=== PATIENT | male | born 1945 | race Caucasian/White ===

== ENCOUNTER 2025-05-15 08:46 | Emergency (ER) | payer MEDICARE, OTHER, SELFPAY ==
[2025-05-15 08:58] VITALS: BP 143/89; PULSE 97; RESP 18; TEMP 36.5; O2SAT 96; BMI 34.6
--- NOTE | 2025-05-15 09:06 | ED_ITS ---
HPI - Extremity Problem 2 General: Chief complaint: Extremity Injury, Lower Stated complaint: Lt leg swelling Time Seen by Provider: 05/15/25 08:48 Source: patient Mode of arrival: ambulatory Limitations: no limitations History of Present Illness: 80-year-old male states that over the la st few days he has had swelling posterior aspect of his left knee has been having erythema and some drainage he has pain he rates a 1 out of 10 denies any fevers denies any injuries. Associated symptoms: Deny chest pain, fever(s) or rash Related Data Previous Rx's ?Medication ?Instructions ?Recorded cephalexin 500 mg capsule 500 mg PO TID 7 days #21 cap s 05/15/25 sulfamethoxazole 800 1 tab PO BID 10 days #20 tab s 05/15/25 mg-trimethoprim 160 mg tablet (Bactrim DS) Allergies Allergy/AdvReac Type Severity Reaction Status Date / Time warfarin Allergy ADR-Nausea Verified 05/15/25 08:56 Review of Systems 2 Const: Denies: fever(s), chills, body aches or change in appetite ENMT: Denies: throat pain or dental pain Card: Denies: chest pain Resp: Denies: dyspnea GI: Denies: abdominal pain, nausea, vomiting or diarrhea Musc: Reports: extremity pain; Denies: neck pain or back pain Skin/Breast: Reports: erythema; Denies: rash Neuro: Denies: headache(s) Physical Exam 2 Const: COMMON NORMALS: no acute distress, patient oriented x3 and healthy appearing HENMT: COMMON NORMALS: normocephalic and atraumatic HEAD & SCALP: n ormocephalic and atraumatic Eye: COMMON NORMALS: conjunctivae normal CONJUNCTIVA: Yes conjunctivae normal Neck/C-Spine: COMMON NORMALS: full ROM and supple Chest: COMMONS NORMALS: normal inspection of the chest Resp: COMMON NORMALS: normal respiratory effort Cardio: COMMON NORMALS: regular rate RATE: regular rate Extremity: COMMON NORMALS: full ROM NARRATIVE EXTREMITY EXAM: Erythema cellulitis to posterior left knee Neuro: COMMON NORMALS: patient oriented x3, moves all extremities and no focal motor deficits Psych: COMMON NORMALS: mental status grossly normal, Normal thought process present and cooperative THOUGHT PROCESS: Normal thought process present Skin: COMMON NORMALS: no rashes or lesions noted GENERAL SKIN EXAM: no rashes or lesions noted Course 2 Vital Signs: Vital signs: Vital Signs Temperature 97.7 F 05/15/25 08:58 Pulse Rate 92 05/15/25 09:34 Respiratory Rate 18 05/15/25 08:58 Blood Pressure 143/89 05/15/25 09:34 Pulse Oximetry 94 05/15/25 09:34 MDM - Extremity (Nontraumatic) Medical Decision Making Patient presents here with cellulitis of the left leg no signs of abscess did give IV antibiotics here we will start him on oral antibiotics he is to return if worsening he understands agrees to plan. Medical Records I reviewed the patient's medical records. Lab Data I reviewed the patient's lab results. 05/15/25 09:22 Laboratory Results WBC 9.12 10^3/uL (3.29-11.43) 05/15/25 09:22 RBC 5.01 10^6/uL (3.85-5.65) 05/15/25 09:22 Hgb 14.50 g/dL (11.27-16.99) 05/15/25 09:22 Hct 44.3 % (37-53) 05/15/25 09:22 MCV 88.4 fl (82-101) 05/15/25 09:22 MCH 28.9 pg (27-33) 05/15/25 09:22 MCHC 32.7 g/dL (30-55) 05/15/25 09:22 RDW 14.3 % (12.1-15.1) 05/15/25 09:22 Plt Count 186 10^3/cmm (157-399) 05/15/25 09:22 MPV 9.3 fL (7.4-10.4) 05/15/25 09:22 Neut % (Auto) 55.5 % 05/15/25 09:22 Lymph % (Auto) 25.2 % 05/15/25 09:22 [place] % (Auto) 12.1 % 05/15/25 09:22 Eos % (Auto) 6.8 % 05/15/25 09:22 Baso % (Auto) 0.2 % 05/15/25 09:22 Neut # (Auto) 5.06 10^3/uL (1.8-7.7) 05/15/25 09:22 Lymph # (Auto) 2.3 10^3/uL (0.8-4.8) 05/15/25 09:22 [place] # (Auto) 1.1 10^3/uL (0.2-0.9) H 05/15/25 09:22 Eos # (Auto) 0.6 10^3/uL (0.0-0.8) 05/15/25 09:22 Baso # (Auto) 0.0 10^3/uL (0.0-0.1) 05/15/25 09:22 Nucleated RBC % (auto) 0 % 05/15/25 09:22 Nucleated RBCs # 0.0 /100WBC 05/15/25 09:22 ESR 1 mm/hr (0-10) 05/15/25 09:22 C-Reactive Protein 5.6 mg/L (0.0-4.9) H 05/15/25 09:22 No radiology studies performed this visit Discharge Plan Discharge Patient Disposition: Home Clinical Impression: Cellulitis of left leg Condition: Stable Prescriptions: New sulfamethoxazole-trimethoprim [Bactrim DS] 800-160 mg tablet 1 tab PO BID 10 Days Qty: 20 0RF cephalexin 500 mg capsule 500 mg PO TID 7 Days Qty: 21 0RF Discharge Orders: Discharge ED (Routine); Ordered 05/15/25 Ordered By: Kurt Escamilla Discharge Diet: Advance as tolerated Discharge Activity: Resume usual activity Patient Instructions: Cellulitis (ED) Print Language: Albanian Coding Level of Care Code ED Material Man for Bridgette Irene
[2025-05-15] MEDS: VANCOMYCIN ADD-Vantage 1,000 MG in 0.9% NaCl ADD-Vantage 250 ML 250 MG IV (09:30)
[2025-05-15 09:33] LABS: Basophils % 0.2 %; Eosinophils # 0.6 10^3/uL (0.0-0.8); Eosinophils % 6.8 %; Hematocrit 44.3 % (37-53); Lymphocytes # 2.3 10^3/uL (0.8-4.8); Lymphocytes % 25.2 %; Mean Corpuscular HGB Conc 32.7 g/dL (30-55); Mean Corpuscular Hemoglobin 28.9 pg (27-33); Mean Corpuscular Volume 88.4 fl (82-101); Mean Platelet Volume 9.3 fL (7.4-10.4); Monocytes # 1.1 10^3/uL (0.2-0.9); Monocytes % 12.1 %; Neutrophils # 5.06 10^3/uL (1.8-7.7); Neutrophils % 55.5 %; Nucleated Red Blood Cells % 0 %; Platelet Count 186 10^3/cmm (157-399); Red Blood Count 5.01 10^6/uL (3.85-5.65); Red Cell Distribution Width 14.3 % (12.1-15.1); White Blood Count 9.12 10^3/uL (3.29-11.43)
[2025-05-15 09:34] VITALS: BP 143/89; PULSE 92; O2SAT 94
[2025-05-15 09:34] LABS: Erythrocyte Sedimentation Rate 1 mm/hr (0-10)
[2025-05-15 09:49] LABS: C Reactive Protein 5.6 mg/L (0.0-4.9)
[2025-05-15 10:43] VITALS: BP 126/82; PULSE 90; O2SAT 96
== END 2025-05-15 10:43 | disposition home or self-care (01) ==
PROVIDERS: Emergency Provider Emergency Medicine
DX: L03.116 Cellulitis of left lower limb (principal)
CPT/HCPCS: 36415; 85025; 85651; 86140; 96374; 99284; J3370; J7050

== ENCOUNTER 2025-05-22 13:48 | Emergency (ER) | payer MEDICARE, OTHER, SELFPAY ==
[2025-05-22 13:51] VITALS: BP 107/61; PULSE 114; RESP 18; TEMP 36.9; O2SAT 96; BMI 33.1
[2025-05-22 14:20] LABS: Bilirubin Urine 1+ (Negative); Blood Urine 2+ (Negative); Glucose Urine UA Negative (Normal); Ketones Urine Trace (Negative); Leukocyte Esterase Urine Negative (Negative); Nitrate Urine Negative (Negative); Protein Urine 2+ (Negative); Urine Appearance Cloudy (CLEAR); Urine Color Dark Yellow (Yellow); pH Urine 5.5 (5-7)
[2025-05-22 14:25] LABS: Add Urine Microscopic? YES; Bacteria Urine None Seen /hpf; Hyaline Casts Urine 27.69 /lpf; RBC Urine 51-100 /hpf (0-2); Universal Test for UA Present (0); WBC Urine 0-5 /hpf (0-5)
[2025-05-22 14:26] LABS: Basophils % 0.4 %; Eosinophils % 0.2 %; Hematocrit 44.2 % (37-53); Lymphocytes # 1.2 10^3/uL (0.8-4.8); Mean Corpuscular HGB Conc 33.3 g/dL (30-55); Mean Corpuscular Hemoglobin 29.1 pg (27-33); Mean Corpuscular Volume 87.4 fl (82-101); Mean Platelet Volume 10.3 fL (7.4-10.4); Monocytes # 0.7 10^3/uL (0.2-0.9); Monocytes % 13.7 %; Neutrophils # 3.13 10^3/uL (1.8-7.7); Neutrophils % 62.1 %; Nucleated Red Blood Cells % 0 %; Platelet Count 119 10^3/cmm (157-399); Red Blood Count 5.06 10^6/uL (3.85-5.65); Red Cell Distribution Width 14.1 % (12.1-15.1); White Blood Count 5.04 10^3/uL (3.29-11.43)
--- NOTE | 2025-05-22 14:33 | W.ED.NAVMDI ---
HPI - Nausea/Vomiting/Diarrhea General: Chief complaint: Nausea/Vomiting/Diarrhea Stated complaint: NV / lethargy Time Seen by Provider: 05/22/25 14:30 Source: patient Mode of arrival: ambulatory Limitations: no limitations History of Present Illness: 80-year-old male who was seen here last week for cellulitis to his left leg he has been on antibiotics for that states that the cellulitis is improved but over the last few days has been having nausea vomiting diarrhea. States he is having some weakness that he feels like he has not been able to tolerate any p.o. He denies any fevers denies any pain. Associated nausea: Yes Associated symtoms: Reports fatigue and nausea; Denies chest pain, dysuria or headache(s) Related Data Home Medications ?Medication ?Instructions ?Recorded ?Confirmed atorvastatin 80 mg tablet 80 mg PO QPM 05/22/25 05/22/25 dabigatran etexilate 150 mg 150 mg PO QPM 05/22/25 05/22/25 capsule (Pradaxa) diltiazem HCl 180 mg 180 mg PO QPM 05/22/25 05/22/25 capsule,extended release 24 hr losartan 25 mg tablet 255 mg PO QPM 05/22/25 05/22/25 Previous Rx's ?Medication ?Instructions ?Recorded sulfamethoxazole 800 1 tab PO BID 10 days #20 tabs 05/15/25 mg-trimethoprim 160 mg tablet (Bactrim DS) ondansetron 4 mg disintegrating 4 mg PO Q6H PRN nausea and 05/22/25 tablet vomiting #14 tabs Allergies Allergy/AdvReac Type Severity Reaction Status Date / Time warfarin Allergy ADR-Nausea Verified 05/15/25 08:56 Review of Systems Const: Reports: fatigue; Denies: fever(s), chills, body aches or change in appetite ENMT: Denies: throat pain or dental pain Card: Denies: chest pain Resp: Denies: dyspnea GI: Reports: nausea, vomiting and diarrhea; Denies: abdominal pain : Denies: dysuria Musc: Denies: neck pain or back pain Skin/Breast: Denies: rash Neuro: Denies: headache(s) Physical Exam Const: COMMON NORMALS: no acute distress, patient oriented x3 and healthy appearing HENMT: COMMON NORMALS: normocephalic and atraumatic HEAD & SCALP: normocephalic and atraumatic Eye: COMMON NORMALS: conjunctivae normal CONJUNCTIVA: Yes conjunctivae normal Neck/C-Spine: COMMON NORMALS: full ROM and supple Chest: COMMONS NORMALS: normal inspection of the chest Resp: COMMON NORMALS: normal respiratory effort, No retractions, No use of accessory muscles and clear to auscultation bilaterally AUSCULTATION: clear to auscultation bilaterally Cardio: COMMON NORMALS: regular rate, regular rhythm and No murmurs present (Cardio) RATE: regular rate RHYTHM: regular rhythm GI: COMMON NORMALS: Normal to inspection, nondistended, normoactive bowel sounds present, Soft to palpation, non-tender and no masses PALPATION: Yes Soft to palpation Extremity: COMMON NORMALS: normal to inspection and full ROM Neuro: COMMON NORMALS: patient oriented x3, moves all extremities and no focal motor deficits Psych: COMMON NORMALS: mental status grossly normal, Normal thought process present and cooperative THOUGHT PROCESS: Normal thought process present Skin: COMMON NORMALS: no rashes or lesions noted and no wounds GENERAL SKIN EXAM: no rashes or lesions noted Course Vital Signs: Vital signs: Vital Signs Temperature 99.1 F 05/22/25 16:24 Pulse Rate 113 H 05/22/25 14:37 Respiratory Rate 18 05/22/25 13:51 Blood Pressure 113/68 05/22/25 14:37 Pulse Oximetry 94 05/22/25 14:37 Oxygen Delivery Me thod Room Air 05/22/25 14:37 MDM - Nausea/Vomiting/Diarrhea Medical Decision Making Patient presents with vomiting he feels much improved after fluids and Zofran white count here is normal cellulitis is much improved patient is requesting discharge I feel he is stable for discharge this time will prescribe Zofran informed of any things worsens he is to return he understands agrees plan Medical Records I reviewed the patient's medical records. Lab Data I reviewed the patient's lab results. 05/22/25 14:12 05/22/25 14:12 Laboratory Results WBC 5.04 10^3/uL (3.29-11.43) 05/22/25 14:12 RBC 5.06 10^6/uL (3.85-5.65) 05/22/25 14:12 Hgb 14.70 g/dL (11.27-16.99) 05/22/25 14:12 Hct 44.2 % (37-53) 05/22/25 14:12 MCV 87.4 fl (82-101) 05/22/25 14:12 MCH 29.1 pg (27-33) 05/22/25 14:12 MCHC 33.3 g/dL (30-55) 05/22/25 14:12 RDW 14.1 % (12.1-15.1) 05/22/25 14:12 Plt Count 119 10^3/cmm (157-399) L 05/22/25 14:12 MPV 10.3 fL (7.4-10.4) 05/22/25 14:12 Neut % (Auto) 62.1 % 05/22/25 14:12 Lymph % (Auto) 23.0 % 05/22/25 14:12 [place] % (Auto) 13.7 % 05/22/25 14:12 Eos % (Auto) 0.2 % 05/22/25 14:12 Baso % (Auto) 0.4 % 05/22/25 14:12 Neut # (Auto) 3.13 10^3/uL (1.8-7.7) 05/22/25 14:12 Lymph # (Auto) 1.2 10^3/uL (0.8-4.8) 05/22/25 14:12 [place] # (Auto) 0.7 10^3/uL (0.2-0.9) 05/22/25 14:12 Eos # (Auto) 0.0 10^3/uL (0.0-0.8) 05/22/25 14:12 Baso # (Auto) 0.0 10^3/uL (0.0-0.1) 05/22/25 14:12 Nucleated RBC % (auto) 0 % 05/22/25 14:12 Nucleated RBCs # 0.0 /100WBC 05/22/25 14:12 Sodium 130 mmol/L (136-145) L 05/22/25 14:12 Potassium 5.1 mmol/L (3.5-5.1) 05/22/25 14:12 Chloride 94 mmol/L (98-107) L 05/22/25 14:12 Carbon Dioxide 22 mmol/L (22-29) 05/22/25 14:12 Anion Gap 19.1 (5-19) H 05/22/25 14:12 BUN 31 mg/dL (8-23) H 05/22/25 14:12 Creatinine 1.7 mg/dL (0.7-1.2) H 05/22/25 14:12 GFR Calculation Not Reportable 05/22/25 14:12 Glucose 101 mg/dL (65-115) 05/22/25 14:12 Calculated Osmolality 277 mOsm/kg (285-295) L 05/22/25 14:12 Lactic Acid 1.6 mmol/L (0.5-2.2) 05/22/25 14:12 Calcium 8.9 mg/dL (8.5-10.5) 05/22/25 14:12 Total Bilirubin 0.6 mg/dL (0.15-1.2) 05/22/25 14:12 AST 45 U/L (0-40) H 05/22/25 14:12 ALT 33 U/L (0-41) 05/22/25 14:12 Alkaline Phosphatase 89 U/L (40-130) 05/22/25 14:12 Total Protein 6.5 g/dL (6.6-8.7) L 05/22/25 14:12 Albumin 3.9 g/dL (3.5-5.2) 05/22/25 14:12 Globulin 2.6 g/dL (1.3-4.6) 05/22/25 14:12 Lipase 56 U/L (13-60) 05/22/25 14:12 Urine Color Dark yellow (Yellow) A 05/22/25 14:13 Urine Appearance Cloudy (CLEAR) A 05/22/25 14:13 Urine pH 5.5 (5-7) 05/22/25 14:13 Ur Specific [place] 1.036 (1.005-1.030) H 05/22/25 14:13 Urine Protein 2+ (Negative) A 05/22/25 14:13 Urine Glucose (UA) Negative (Normal) 05/22/25 14:13 Urine Ketones Trace (Negative) 05/22/25 14:13 Urine Blood 2+ (Negative) A 05/22/25 14:13 Urine Nitrate Negative (Negative) 05/22/25 14:13 Urine Bilirubin 1+ (Negative) H 05/22/25 14:13 Urine Urobilinogen 1.0 mg/dL (Negative) 05/22/25 14:13 Ur Leukocyte Esterase Negative (Negative) 05/22/25 14:13 Urine RBC 51-100 /hpf (0-2) H 05/22/25 14:13 Urine WBC 0-5 /hpf (0-5) 05/22/25 14:13 Ur Squamous Epith Cells 6-10 /hpf (0-5) 05/22/25 14:13 Amorphous Sediment Not Reportable 05/22/25 14:13 Urine Bacteria None seen /hpf (NONE) 05/22/25 14:13 Hyaline Casts 27.69 /lpf 05/22/25 14:13 Coarse Granular Casts 0-4 /lpf H 05/22/25 14:13 No radiology studies performed this visit Discharge Plan Discharge Patient Disposition: Home Clinical Impression: Vomiting Condition: Stable Prescriptions: New ondansetron 4 mg tablet,disintegrating 4 mg PO Q6H PRN (Reason: nausea and vomiting) Qty: 14 0RF No Action atorvastatin 80 mg tablet 80 mg PO QPM diltiazem HCl 180 mg capsule,extended release 24hr 180 mg PO QPM losartan 25 mg tablet 255 mg PO QPM dabigatran etexilate [Pradaxa] 150 mg capsule 150 mg PO QPM sulfamethoxazole-trimethoprim [Bactrim DS] 800-160 mg tablet 1 tab PO BID 10 Days Qty: 20 0RF Discharge Orders: Discharge ED (Routine); Ordered 05/22/25 Ordered By: Kurt Escamilla Referrals: Joao Kendrick DO [Primary Care Provider] - 4-7 days Discharge Diet: Advance as tolerated Discharge Activity: Resume usual activity Patient Instructions: Acute Nausea and Vomiting (ED) Print Language: Turkish Coding Level of Care Code ED Tool Grinder for Bridgette Irene
[2025-05-22 14:36] LABS: Specific Gravity, Urine 1.036 (1.005-1.030); UA Slide Review UA Slide Review Perf
[2025-05-22 14:37] VITALS: BP 113/68; PULSE 113; TEMP 38; O2SAT 94
[2025-05-22 14:37] LABS: Add Urine Culture? Yes; Coarse Granular Casts Urine 0-4 /lpf
[2025-05-22 14:42] LABS: Slide Review Slide Review Perform
[2025-05-22 14:43] LABS: Alanine Aminotransferase 33 U/L (0-41); Albumin Level 3.9 g/dL (3.5-5.2); Alkaline Phosphatase 89 U/L (40-130); Anion Gap 19.1 (5-19); Aspartate Amino Transferase 45 U/L (0-40); Blood Urea Nitrogen 31 mg/dL (8-23); Calcium 8.9 mg/dL (8.5-10.5); Carbon Dioxide 22 mmol/L (22-29); Chloride 94 mmol/L (98-107); Creatinine Clr Calc Pharmacy 46.8079; Globulin 2.6 g/dL (1.3-4.6); Glucose 101 mg/dL (65-115); Lipase 56 U/L (13-60); Osmolality Calculated 277 mOsm/kg (285-295); Potassium 5.1 mmol/L (3.5-5.1); Sodium 130 mmol/L (136-145); Total Bilirubin 0.6 mg/dL (0.15-1.2); Total Protein 6.5 g/dL (6.6-8.7)
[2025-05-22 14:52] LABS: Lactic Sepsis W/Reflex 1.6 mmol/L (0.5-2.2)
[2025-05-22] MEDS: ondansetron 2 mg/ML SDV 2 mL 4 MG IVP (15:09)
[2025-05-22] MEDS: sodium chloride 0.9% 1,000 ML 999 ML IV ×2 (15:10)
[2025-05-22] MEDS: acetaminophen 500 mg Tablet 1000 MG PO (15:10)
[2025-05-22 16:24] VITALS: TEMP 37.3
[2025-05-22 16:43] VITALS: BP 100/72; PULSE 96; O2SAT 91
== END 2025-05-22 16:45 | disposition home or self-care (01) ==
PROVIDERS: Emergency Provider Emergency Medicine; PCP Family Medicine
DX: R11.10 Vomiting, unspecified (principal)
CPT/HCPCS: 36415; 80053; 81001; 83605; 83690; 85025; 87086; 96374; 99284; J2405; J7030; J9999